=== PATIENT | male | born 1945 | race Caucasian/White ===

== ENCOUNTER → 2016-12-06 | Outpatient (CLI) | payer MEDICARE, OTHER | LOC: M WUC 13:47 | PROVIDERS: ATTEND Physician Assistant | DX: B37.0 Candidal stomatitis (principal) ==

== ENCOUNTER 2017-05-08 09:18 | Outpatient (RCR) | payer MEDICARE, OTHER | END 2017-05-11 | LOC: M PT 09:18 | PROVIDERS: ATTEND Orthopaedic Surgery | DX: Z51.89 Encounter for other specified aftercare (principal); M76.61 Achilles tendinitis, right leg | CPT/HCPCS: 97110; 97161; G8978; G8979 ==

== ENCOUNTER 2017-05-12 09:23 | Outpatient (RCR) | payer MEDICARE, OTHER | END 2017-06-11 | LOC: M PT 05-15 09:21 | DX: Z51.89 Encounter for other specified aftercare (principal); M76.61 Achilles tendinitis, right leg | CPT/HCPCS: 97110 ==

== ENCOUNTER 2017-06-14 09:34 | Outpatient (RCR) | payer MEDICARE, OTHER | END 2017-07-12 | LOC: M PT 09:34 | DX: Z51.89 Encounter for other specified aftercare (principal); M76.61 Achilles tendinitis, right leg | CPT/HCPCS: 97110 ==

== ENCOUNTER → 2017-08-25 | Outpatient (CLI) | payer MEDICARE, OTHER ==
[2017-08-25 06:33] LABS: COLLAGEN EPINEPHRINE 184 SECONDS (74-162)
[2017-08-25 06:44] LABS: COLLAGEN ADP 82 SECONDS (56-103)
== END ==
LOC: M LAB 06:02
DX: L72.0 Epidermal cyst (principal)
CPT/HCPCS: 36415

== ENCOUNTER → 2018-04-13 | Outpatient (REF) | payer MEDICARE, OTHER ==
[2018-04-13 13:56] LABS: APPEARANCE, URINE CLEAR (CLEAR); BACTERIA, URINE AUTO NEGATIVE (NEGATIVE); BILIRUBIN, URINE AUTO NEGATIVE (NEGATIVE); BLOOD, URINE BLOOD NEGATIVE (NEGATIVE); COLOR, URINE YELLOW (YELLOW); GLUCOSE, URINE (UA) AUTO NEGATIVE (NEGATIVE); KETONE, URINE AUTO NEGATIVE (NEGATIVE); LEUKOCYTE ESTERASE, URINE AUTO NEGATIVE (NEGATIVE); MUCUS, URINE SMALL (NEGATIVE); NITRITE, URINE AUTO NEGATIVE (NEGATIVE); PROTEIN, URINE AUTO NEGATIVE (NEGATIVE); RBC, URINE AUTO 0 /HPF (0-3); SPECIFIC GRAVITY URINE AUTO 1.026 (1.002-1.035); SQUAMOUS EPITHELIAL CELL UR AU 0 /HPF (0-6); UROBILINOGEN, URINE AUTO 0.2 mg/dL (0.0-2.0); WBC, URINE AUTO 0 /HPF (0-3)
== END ==
LOC: M SMT 13:26
DX: R36.1 Hematospermia (principal)
CPT/HCPCS: 81001

== ENCOUNTER → 2018-07-03 | Outpatient (CLI) | payer MEDICARE, OTHER ==
--- NOTE | 2018-07-03 15:12 | REP ---
Chest two views HISTORY: Shortness of breath Comparison: None The lungs are clear. The heart is normal in size. The pulmonary vasculature is normal in appearance. The bony structure is intact. IMPRESSION: No acute disease. Electronically Signed by Ronnie Shah MD 07/03/2018 03:02 P
== END ==
LOC: M SMT 14:44
PROVIDERS: ATTEND Internal Medicine Pulmonary Disease
DX: R06.02 Shortness of breath (principal)

== ENCOUNTER → 2018-07-10 | Outpatient (CLI) | payer MEDICARE, OTHER ==
[~2018-07-10] MED LIST: METHACHOLINE KIT (J7674) INH ONE
--- NOTE | 2018-07-10 10:43 | PFTRPT ---
Height: 71.00 Inches Weight: 240.00 Lbs BSA: 2.28 Diagnosis: R06.02 DATE OF STUDY: 07/10/2018 ORDERED BY: Dr. Alvaerz Spirometry: Excellent technical quality. Forced vital capacity normal. FEV1 is in proportion. Obstructive index is, therefore, normal. Flow Volume Loop: Expiratory limb of the flow volume loop is normal. Lung Volumes: Total lung capacity, unfortunately, is not recorded. Diffusing Capacity: Diffusing capacity is normal. Hemoglobin: Hemoglobin acceptable at 14. Airway Mechanics: Airway resistance and conductance are normal. IMPRESSION: Obtained values are of normal limits. Plethysmography lung volumes, unfortunately, not recorded. Please correlate clinically. MTDD
--- NOTE | 2018-07-10 11:36 | PFTRPT ---
Height: 71.00 Inches Weight: 240.00 Lbs BSA: 2.28 Diagnosis: R06.02 DATE OF PROCEDURE: 07/10/2018 ORDERED BY: Dr. Alvarez INTERPRETATION: Study of excellent technical quality. Under protocol, methacholine was administered. Even after a maximal dose of 25 mg or 188.875 CDUs, no provocation dose ever achieved. IMPRESSION: Negative methacholine challenge study. MTDD
== END ==
LOC: M CARPUL 09:46
PROVIDERS: ATTEND Internal Medicine Pulmonary Disease
DX: R06.02 Shortness of breath (principal)
CPT/HCPCS: 36415; 85018; 94010; 94070; 94726; 94729; 95070; J7674

== ENCOUNTER → 2018-09-03 | Outpatient (REF) | payer MEDICARE, OTHER ==
[2018-09-03 22:48] LABS: INFLUENZA A AMPLIFICATION NEGATIVE (NEGATIVE); INFLUENZA B AMPLIFICATION NEGATIVE (NEGATIVE)
== END ==
LOC: M LAB REF 09:39
PROVIDERS: ATTEND Physician Assistant Medical
DX: J11.1 Influenza due to unidentified influenza virus with other respiratory manifestations (principal)

== ENCOUNTER → 2021-12-29 | Outpatient (CLI) | payer MEDICARE, OTHER ==
[~2021-12-29] MED LIST changes: +ISOVUE-300 61% 50ML VIAL As Ordered ONE; +LIDOCAINE 1% MDV 20ML VIAL As Ordered ONE; -METHACHOLINE KIT (J7674) INH ONE; +TRIAMCINOLONE ACETONIDE SUSP 40 MG/ML VIAL (J3301) As Ordered ONE
== END ==
LOC: M RADPRO 10:30
PROVIDERS: ATTEND Orthopaedic Surgery
DX: M16.12 Unilateral primary osteoarthritis, left hip (principal)
CPT/HCPCS: 20610; 76000; J3301; Q9967

== ENCOUNTER → 2022-05-23 | Outpatient (CLI) | payer MEDICARE, OTHER ==
[2022-05-23 11:17] LABS: HEMATOCRIT 43.2 % (42.0-52.0); HEMOGLOBIN 13.4 g/dl (13.5-17.5); MEAN CORPUSCULAR VOLUME 90.4 fl (80.0-96.0); PLATELET COUNT, AUTOMATED 302 10^3/uL (150-450); RED BLOOD COUNT 4.78 10^6/uL (4.30-6.10)
[2022-05-23 11:34] LABS: INR 0.9; PROTHROMBIN TIME 12.3 SECONDS (12.5-14.5)
[2022-05-23 11:42] LABS: ALKALINE PHOSPHATASE 71 U/L (46-116); ALT/SGPT 16 U/L (7.0-40); AST/SGOT 16 U/L (<34); BILIRUBIN,TOTAL 0.6 MG/DL (0.3-1.2); BLOOD UREA NITROGEN 27 MG/DL (9-23); CALCIUM LEVEL 9.3 MG/DL (8.3-10.6); CARBON DIOXIDE LEVEL 30 MMOL/L (20-31); CHLORIDE LEVEL 102 MMOL/L (98-107); CREATININE FOR GFR 0.92 MG/DL (0.70-1.30); GLOMERULAR FILTRATION RATE > 60.0 (>42); GLUCOSE, FASTING 136 MG/DL (74-106); POTASSIUM SERUM 4.5 MMOL/L (3.5-5.1); SODIUM LEVEL 140 MMOL/L (136-145); TOTAL PROTEIN 6.8 G/DL (5.7-8.2)
[2022-05-23 12:51] LABS: ERYTHROCYTE SEDIMENTATION RATE 6 mm/hr (0-20)
== END ==
LOC: M RAD 10:25
PROVIDERS: ATTEND Orthopaedic Surgery
DX: M16.12 Unilateral primary osteoarthritis, left hip (principal); Z79.899 Other long term (current) drug therapy

== ENCOUNTER 2022-06-09 13:48 | Outpatient (RCR) | payer MEDICARE, OTHER | END 2022-06-11 | LOC: M PT 13:48 | PROVIDERS: ATTEND Orthopaedic Surgery | DX: Z96.642 Presence of left artificial hip joint (principal) ==

== ENCOUNTER 2022-07-07 11:00 | Outpatient (RCR) | payer MEDICARE, OTHER | END 2022-07-12 | LOC: M PT 11:00 | PROVIDERS: ATTEND Orthopaedic Surgery | DX: Z47.89 Encounter for other orthopedic aftercare (principal); Z96.642 Presence of left artificial hip joint ==

== ENCOUNTER → 2022-08-09 | Outpatient (RCR) | payer MEDICARE, OTHER | LOC: M PT 07-13 09:19 | PROVIDERS: ATTEND Orthopaedic Surgery | DX: Z47.1 Aftercare following joint replacement surgery (principal); Z96.642 Presence of left artificial hip joint ==

== ENCOUNTER 2022-09-08 11:00 | Outpatient (RCR) | payer MEDICARE, OTHER | END 2022-09-09 | LOC: M PT 11:00 | PROVIDERS: ATTEND Orthopaedic Surgery | DX: Z47.89 Encounter for other orthopedic aftercare (principal); Z96.642 Presence of left artificial hip joint ==

== ENCOUNTER 2022-09-15 10:56 | Outpatient (RCR) | payer MEDICARE, OTHER | END 2022-10-09 | LOC: M PT 10:56 | PROVIDERS: ATTEND Orthopaedic Surgery | DX: Z98.890 Other specified postprocedural states (principal) ==